=== PATIENT | male | born 1970 | race Caucasian/White ===

== ENCOUNTER 2021-10-31 15:57 | Emergency (ER) | payer BC, SELFPAY ==
--- NOTE | 2021-10-31 16:04 | ED.URI ---
HPI - URI/Sore Throat General Chief Complaint: Upper Respiratory Infection Stated Complaint: Ear Pain,Congestion Time Seen by Provider: 10/31/21 16:04 Source: patient and RN notes reviewed Mode of arrival: ambulatory Limitations: no limitations History of Present Illness HPI Narrative: Paul is a 51-year-old male patient who ambulated into breast care. Patient has 7-day history of cough, sinus pressure and ear pressure. Patient has been taking Claritin-D daily. MD elicited complaint: nasal congestion Related Data Home Medications Medication Instructions Recorded Confirmed fexofenadine 60 mg-pseudoephedrine 1 tablet PO Q12H PRN 10/16/19 07/18/20 ER 120 mg tablet,ext.release,12 hr Allergies Allergy/AdvReac Type Severity Reaction Status Date / Time No Known Allergies Allergy Verified 07/18/20 10:21 Review of Systems Review of Systems: CONSTITUTIONAL: Denies body aches, fever, chills, or sweats. EYES: Denies visual changes, redness, or discharge. ENT: Denies rhinorrhea, +congestion, sore throat, +otalgia. CARDIOVASCULAR: Denies chest pain, palpitations, or edema. RESPIRATORY: Denies cough or dyspnea. GASTROINTESTINAL: Denies abdominal pain, nausea, vomiting, or diarrhea. GENITOURINARY: Denies dysuria or hematuria. SKIN: Denies rash, itching, or wounds. MUSCULOSKELETAL: Denies back pain, joint pain, or myalgia. NEUROLOGIC: Denies headache, numbness, tingling, or weakness. PSYCH: Denies depression or anxiety. All systems reviewed & are unremarkable except as noted in HPI and below PMFSH Family History Family History Mother Patient's mother is in good health Father Patient's father is in good health Social History Social History Smoking status: Former smoker Second hand tobacco smoke exposure: No Smoking end date: 11/25/98 Alcohol intake: current Comments At time of signature, I have reviewed and agree with nursing past medical, surgical, social and family history unless otherwise noted. Please see nursing chart for further information. There is no relevant family history pertinent to the presenting complaint Exam Narrative: GENERAL: Well-appearing, well-nourished, and in no acute distress. HEAD: Normocephalic, atraumatic. EYES: EOMI. No redness or drainage. Conjunctivae normal. ENT: Mucous membranes pink and moist. Nares clear. No rhinorrhea. TMs dull bilateral with moderate fluid no edema. Posterior pharynx is mildly erythemic without edema or exudate. . Uvula midline. NECK: Normal AROM. Supple. No lymphadenopathy. CHEST: No respiratory distress. Clear to auscultation. MUSCULOSKELETAL: No bony tenderness. EXTREMITIES: Normal range of motion. No edema. SKIN: Warm, dry, no rash. Capillary refill normal. Normal skin turgor. NEURO: No focal deficits. Alert and oriented x3. Gait steady. PSYCH: Normal affect. No signs of depression or anxiety. Course Vital Signs Vital signs: Vital Signs Temperature 36.4 C L 10/31/21 16:07 Pulse Rate 80 10/31/21 16:07 Respiratory Rate 16 10/31/21 16:07 Blood Pressure 176/109 H 10/31/21 16:07 Pulse Oximetry 100 10/31/21 16:07 Temperature 36.4 C L 10/31/21 16:07 Pulse Rate 80 10/31/21 16:07 Respiratory Rate 16 10/31/21 16:07 Blood Pressure 176/109 H 10/31/21 16:07 Pulse Oximetry 100 10/31/21 16:07 MDM - URI/Sore Throat MDM Narrative Medical decision making narrative: Patient has a 6-day history of sinus congestion and pain. Patient has been trying Claritin-D at home without relief. Patient will be giving prednisone for 5 days. Follow-up with your primary care physician in 7 days. Was offered a drive-through Covid PCR test and declined. Differential Diagnosis Differential diagnosis: Likely upper respiratory infection, otitis media and sinusitis Medical Records Attestation: I reviewed the patient's m
[2021-10-31 16:07] VITALS: BP 176/109; PULSE 80; RESP 16; TEMP 36.4; O2SAT 100
== END 2021-10-31 16:23 | disposition home or self-care (01) ==
PROVIDERS: Emergency Provider Nurse Practitioner Family; PCP Internal Medicine
DX: J32.9 Chronic sinusitis, unspecified (principal); Z87.891 Personal history of nicotine dependence
CPT/HCPCS: 99213; G0463

== ENCOUNTER 2024-03-19 12:44 | Outpatient (CLI) | payer OTHER, SELFPAY ==
--- NOTE | 2024-03-23 15:25 | P.PCNHOL_ITS ---
Holter/Event Monitor Holter/Event Monitor Date of procedure: 03/23/24 Holter/Event Procedure: 24 Hr Holter Monitor Diagnosis: Palpitations Indications: Palpitation Image/Tracing Quality: Favorable Finding: The basic cardiac rhythm is sinus with normal MO QRS and QT interval. The heart rate varied from a minimum of 41 to a maximum of 108 with an average rate of 63. There were no significant pauses identified and there were no examples of AV node dysfunction. The longest RR interval recorded was 1.8 seconds. Supraventricular ectopic activity was infrequent consisting of PACs occurring at a rate of just over 1 complex per hour. There were no runs of SVT and there were no examples of atrial fibrillation. Ventricular ectopic activity was also infrequent with PVCs occurring 1.1% of the complexes. Most all of these were single complexes there was 1 ventricular couplet noted there were no ventricular triplets or runs. There were is who couple of examples of PVCs occurring in a trigeminal pattern. The patient returned a diary which an episode of a sinking feeling was recorded that correlated with sinus rhythm with PVC Conclusion: 1. Sinus rhythm with normal heart rate variability 2. Rare atrial ectopic activity 3. Low frequency PVCs with some trigeminy which appear to correlate with the patient's symptoms Oscar Cortez MD [facility]
== END 2024-03-19 12:45 | disposition home or self-care (01) ==
PROVIDERS: PCP Internal Medicine; Visit Provider Internal Medicine
DX: R00.2 Palpitations (principal)
CPT/HCPCS: 93225; 93226